=== PATIENT | male | born 1970 | race Caucasian/White ===

== ENCOUNTER 2020-01-01 18:44 | Observation (INO) | payer MEDICAID ==
[~2020-01-01] VITALS: Ht 190.5 cm; Wt 94.5 kg
[2020-01-01] MEDS ORDERED: ADDERALL 30 MG30 MG PO (18:53)
[2020-01-01] MEDS ORDERED: LEXAPRO20 MG PO (18:55)
[2020-01-01] MEDS ORDERED: OMEPRAZOLE20 M1 PO (18:55)
[2020-01-01] MEDS ORDERED: CYCLOBENZAPRINE10 MG PO (18:55)
[2020-01-01] MEDS ORDERED: SUPER B COMPLE1 EAC1 PO (18:55)
[2020-01-01] MEDS ORDERED: BUPROPION HCL150 M1 PO (18:57)
[2020-01-01] MEDS ORDERED: SINGULAIR10 MG PO (18:57)
[2020-01-01] MEDS ORDERED: LISINOPRIL5 MG PO (18:58)
[2020-01-01] MEDS ORDERED: FLUTICASONE PRO16 GM NASAL (18:59)
[2020-01-01 19:37] LABS: BASOPHILS 0.2 % (0-2); EOSINOPHILS 1.3 % (0-7); HEMOGLOBIN 14.3 g/dL (13.5-17.5); IMMATURE GRANULOCYTES 0.3 % (0-5); LYMPHOCYTES 31.4 % (15-50); MCH 31.2 pg (26.0-34.0); MCV 91.5 fL (80.0-100.0); MEAN PLATELET VOLUME 8.8 fL (7.4-10.4); MONOCYTES 10.8 % (2-11); PLATELET COUNT 256 10x3/uL (130-400); RBC 4.59 10x6/uL (4.20-6.10); RDW 12.3 % (11.5-14.5); WBC 6.1 10x3/uL (4.8-10.8)
[2020-01-01 19:49] LABS: APTT 33.4 SECONDS (22.8-39.4); CALC OSMOLALITY 278 mosm/kg (275-300); CALCIUM 9.8 mg/dL (8.5-10.1); CARBON DIOXIDE 28.5 mmol/L (21.0-32.0); CHLORIDE - SERUM 99 mmol/L (98-107); CREATININE - SERUM 1.6 mg/dL (0.6-1.3); GLUCOSE 91 mg/dL (74-106); INR 1.03 (0.85-1.17); POTASSIUM - SERUM 4.1 mmol/L (3.5-5.1); PROTIME 13.4 SECONDS (11.6-15.0); SODIUM 138 mmol/L (136-145); UREA NITROGEN 21 mg/dL (7-18); eGFR NON AFRICAN AMERICAN 49 mL/min (90-120)
[2020-01-01 20:07] LABS: ALBUMIN 4.3 g/dL (3.4-5.0); ALKALINE PHOSPHATASE 71 U/L (30-120); ALT (SGPT) 33 U/L (10-68); BILIRUBIN - TOTAL 0.67 mg/dL (0.2-1.3); CKMB 4.2 U/L (0.0-3.6); CREATINE KINASE 371 UL (21-232); MAGNESIUM - SERUM 1.8 mg/dL (1.8-2.4); PROTEIN - SERUM 7.7 g/dL (6.4-8.2); TROPONIN-I < 0.017 ng/mL (0.000-0.060)
[2020-01-01 21:48] LABS: CKMB 4.1 U/L (0.0-3.6); CREATINE KINASE 348 UL (21-232); TROPONIN-I < 0.017 ng/mL (0.000-0.060)
--- NOTE | 2020-01-01 22:29 | NUR ---
PT ARRIVED TO ROOM
--- NOTE | 2020-01-01 23:30 | NUR ---
ADMISSION HISTORY AND ASSESSMENT COMPLETED. PT RESTING IN BED. VERY FIDGETY AND RESTLESS. HOME MEDS REVIEWED/UPDATED. PT C/O CHEST PAIN/DISCOMFORT. MEDICATED WITH MORPHINE/ZOFRAN SIVP. FIANCE AT BEDSIDE. PLAN OF CARE INITIATED. INSTRUCTED ON NPO AFTER MIDNIGHT.
[2020-01-02 00:26] VITALS: BP 132/64; Ht 190.5 cm; Wt 94.5 kg
--- NOTE | 2020-01-02 03:30 | NUR ---
AWAKE, C/O RETURNING CHEST PAIN/DISCOMFORT. MEDICATED WITH ZOFRAN/MORPHINE SIVP.
[2020-01-02 04:45] VITALS: BP 102/59
[2020-01-02 05:08] LABS: BASOPHILS 0.4 % (0-2); EOSINOPHILS 5.2 % (0-7); HEMATOCRIT 37.8 % (42.0-54.0); HEMOGLOBIN 12.7 g/dL (13.5-17.5); LYMPHOCYTES 49.7 % (15-50); MCH 31.2 pg (26.0-34.0); MCHC 33.6 g/dL (31.0-37.0); MCV 92.9 fL (80.0-100.0); MEAN PLATELET VOLUME 8.8 fL (7.4-10.4); NEUTROPHILS 31.7 % (40-80); PLATELET COUNT 220 10x3/uL (130-400); RBC 4.07 10x6/uL (4.20-6.10); RDW 12.6 % (11.5-14.5); WBC 4.6 10x3/uL (4.8-10.8)
[2020-01-02 05:31] LABS: ALBUMIN 3.3 g/dL (3.4-5.0); ALKALINE PHOSPHATASE 64 U/L (30-120); ALT (SGPT) 26 U/L (10-68); BILIRUBIN - TOTAL 0.27 mg/dL (0.2-1.3); CALCIUM 8.2 mg/dL (8.5-10.1); CARBON DIOXIDE 29.7 mmol/L (21.0-32.0); CHLORIDE - SERUM 105 mmol/L (98-107); CKMB 3.1 U/L (0.0-3.6); CREATINE KINASE 318 UL (21-232); PROTEIN - SERUM 6.4 g/dL (6.4-8.2); SODIUM 141 mmol/L (136-145); UREA NITROGEN 21 mg/dL (7-18)
[2020-01-02 05:39] LABS: CALC OSMOLALITY 286 mosm/kg (275-300); CREATININE - SERUM 1.1 mg/dL (0.6-1.3); GLUCOSE 161 mg/dL (74-106); TROPONIN-I < 0.017 ng/mL (0.000-0.060); eGFR NON AFRICAN AMERICAN 75 mL/min (90-120)
--- NOTE | 2020-01-02 07:41 | NUR ---
4MG OF MORPHINE GIVEN FOR PAIN LEVEL OF 3/10. AND 4MG OF ZOFRAN PER PT REQUEST. PT A/O X4, RESP EVEN AND NONLABORED ON 2L. PT DENIES ANY OTHER NEEDS AT THIS TIME. CALL LIGHT IN REACH, NAD NOTED, WILL CONTINUE TO MONITOR.
[2020-01-02 08:00] VITALS: BP 108/60
[2020-01-02 12:00] VITALS: BP 113/66
--- NOTE | 2020-01-02 13:34 | NUR ---
PT RESTING COMFORTABLY IN BED, DENIES ANY NEEDS AT THIS TIME. SPOUSE AT BEDSIDE, CALL LIGHT IN REACH, WILL CONTINUE TO MONITOR.
[2020-01-02 13:41] LABS: CKMB 3.2 U/L (0.0-3.6); CREATINE KINASE 295 UL (21-232)
[2020-01-02 13:43] LABS: TROPONIN-I < 0.017 ng/mL (0.000-0.060)
--- NOTE | 2020-01-02 15:54 | NUR ---
PT ASKING IF HE IS GOING TO BE DISCHARGE TODAY. PAGED DR. 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
[2020-01-02 16:00] VITALS: BP 121/62
--- NOTE | 2020-01-02 16:29 | NUR ---
PER DR. BONNIE OLSEN FOR PT TO BE DISCHARGE, NORMAL STRESS TEST.
--- NOTE | 2020-01-02 16:39 | NUR ---
NOTIFIED GEENA SARMIENTO OF NORMAL STRESS TEST AND PER CARDIOLOGY PT CAN BE D/C.
--- NOTE | 2020-01-02 17:32 | NUR ---
PT WHEELED OUT TO ER ENTRANCE WITH ALL BELONGIGNS, NAD NOTED.
== END 2020-01-02 17:32 | disposition home or self-care (01) ==
LOC: D.ER 18:44 → OBSVTIME 21:22 → D.M2 21:22
PROVIDERS: Family Medicine; ADMIT Emergency Medicine; ATTEND Emergency Medicine
DX: R07.9 Chest pain, unspecified (principal); I10 Essential (primary) hypertension; E78.5 Hyperlipidemia, unspecified; Z72.0 Tobacco use

== ENCOUNTER 2020-08-01 17:05 | Observation (INO) | payer MEDICAID ==
[~2020-08-01] VITALS: Ht 190.5 cm; Wt 95.1 kg
[~2020-08-01 17:05] MED LIST: ADDERALL 30 MG30 MG PO; BUPROPION HCL150 M1 PO; CYCLOBENZAPRINE10 MG PO; FLUTICASONE PRO16 GM NASAL; LEXAPRO20 MG PO; LISINOPRIL5 MG PO; OMEPRAZOLE20 M1 PO; SINGULAIR10 MG PO; SUPER B COMPLE1 EAC1 PO
[2020-08-01 17:50] LABS: BASOPHILS 0.2 % (0-2); EOSINOPHILS 0.6 % (0-7); HEMATOCRIT 43.3 % (42.0-54.0); HEMOGLOBIN 14.9 g/dL (13.5-17.5); IMMATURE GRANULOCYTES 0.2 % (0-5); LYMPHOCYTE ABS# 1.88 10x3/uL (1.32-3.57); LYMPHOCYTES 19.6 % (15-50); MCH 31.1 pg (26.0-34.0); MCHC 34.4 g/dL (31.0-37.0); MCV 90.4 fL (80.0-100.0); MEAN PLATELET VOLUME 9.1 fL (7.4-10.4); MONOCYTES 9.2 % (2-11); NEUTROPHIL ABS# 6.72 10x3/uL (1.78-5.38); NEUTROPHILS 70.2 % (40-80); RBC 4.79 10x6/uL (4.20-6.10); RDW 12.2 % (11.5-14.5); WBC 9.6 10x3/uL (4.8-10.8)
[2020-08-01 17:54] LABS: PLATELET COUNT 299 10x3/uL (130-400)
[2020-08-01 18:02] LABS: CALC OSMOLALITY 278 mosm/kg (275-300); CALCIUM 10.3 mg/dL (8.5-10.1); CARBON DIOXIDE 21.2 mmol/L (21.0-32.0); CHLORIDE - SERUM 100 mmol/L (98-107); CREATININE - SERUM 2.1 mg/dL (0.6-1.3); GLUCOSE 121 mg/dL (74-106); POTASSIUM - SERUM 4.6 mmol/L (3.5-5.1); SODIUM 137 mmol/L (136-145); UREA NITROGEN 25 mg/dL (7-18); eGFR NON AFRICAN AMERICAN 35 mL/min (90-120)
[2020-08-01 18:04] LABS: APTT 27.8 SECONDS (22.8-39.4); INR 1.04 (0.85-1.17); PROTIME 12.6 SECONDS (11.6-15.0)
[2020-08-01 18:05] VITALS: BP 100/78
[2020-08-01 18:05] LABS: ALBUMIN 4.4 g/dL (3.4-5.0); D-DIMER-QUANTITATIVE < 0.27 ug/mLFEU (0.20-0.54); MAGNESIUM - SERUM 1.9 mg/dL (1.8-2.4)
[2020-08-01 18:27] LABS: ALKALINE PHOSPHATASE 83 U/L (30-120); ALT (SGPT) 37 U/L (10-68); BILIRUBIN - TOTAL 0.75 mg/dL (0.2-1.3); CKMB 1.4 U/L (0.0-3.6); CREATINE KINASE 314 UL (21-232); PROTEIN - SERUM 7.9 g/dL (6.4-8.2); TROPONIN-I < 0.017 ng/mL (0.000-0.060)
[2020-08-01 19:00] VITALS: BP 101/58
--- NOTE | 2020-08-01 19:15 | NUR ---
REPORT TO YOUNG KUMAR
[2020-08-01 20:00] VITALS: BP 106/62
[2020-08-01 21:00] VITALS: BP 144/88
[2020-08-01 22:33] VITALS: Ht 190.5 cm; Wt 95.1 kg
--- NOTE | 2020-08-01 22:43 | NUR ---
RECIEVED REPORT FROM ER. ARRIVED TO FLOOR ON STRETCHER WITH SIGNIFICANT OTHER AT SIDE. ASSESSMENT COMPLETER.
[2020-08-01 23:56] VITALS: BP 121/67
[2020-08-02 00:48] LABS: CKMB 1.3 U/L (0.0-3.6); CREATINE KINASE 245 UL (21-232); TROPONIN-I < 0.017 ng/mL (0.000-0.060)
[2020-08-02 04:00] VITALS: BP 126/74
[2020-08-02 06:24] LABS: BASOPHILS 0.2 % (0-2); EOSINOPHILS 2.4 % (0-7); HEMOGLOBIN 12.5 g/dL (13.5-17.5); LYMPHOCYTES 40.9 % (15-50); MCH 31.4 pg (26.0-34.0); MCHC 33.8 g/dL (31.0-37.0); MEAN PLATELET VOLUME 9.1 fL (7.4-10.4); MONOCYTES 11.2 % (2-11); NEUTROPHIL ABS# 2.66 10x3/uL (1.78-5.38); NEUTROPHILS 45.3 % (40-80); PLATELET COUNT 244 10x3/uL (130-400); RBC 3.98 10x6/uL (4.20-6.10); RDW 12.8 % (11.5-14.5)
[2020-08-02 06:34] LABS: WBC 5.9 10x3/uL (4.8-10.8)
[2020-08-02 07:22] LABS: ALBUMIN 3.3 g/dL (3.4-5.0); ALKALINE PHOSPHATASE 68 U/L (30-120); BILIRUBIN - TOTAL 0.27 mg/dL (0.2-1.3); CALCIUM 8.8 mg/dL (8.5-10.1); CHLORIDE - SERUM 107 mmol/L (98-107); CREATINE KINASE 217 UL (21-232); GLUCOSE 121 mg/dL (74-106); PROTEIN - SERUM 6.2 g/dL (6.4-8.2); SODIUM 140 mmol/L (136-145)
[2020-08-02 07:37] LABS: ALT (SGPT) 25 U/L (10-68); CALC OSMOLALITY 287 mosm/kg (275-300); CARBON DIOXIDE 26.9 mmol/L (21.0-32.0); CREATININE - SERUM 1.2 mg/dL (0.6-1.3); POTASSIUM - SERUM 3.9 mmol/L (3.5-5.1); TROPONIN-I < 0.017 ng/mL (0.000-0.060); UREA NITROGEN 35 mg/dL (7-18); eGFR NON AFRICAN AMERICAN 67 mL/min (90-120)
--- NOTE | 2020-08-02 07:40 | NUR ---
Lying in bed, awake/alert/oriented, T/R self ad lorne, cont of B/B with BRPs per self ad lorne, denies pain/other discomfort at this time, call light/phone within reach, currently NPO for procedure/tests, no s/s of acute distress observed.
[2020-08-02 08:12] VITALS: BP 108/56
[2020-08-02 12:16] VITALS: BP 110/58
[2020-08-02 13:08] LABS: CKMB 0.9 U/L (0.0-3.6); CREATINE KINASE 215 UL (21-232); TROPONIN-I < 0.017 ng/mL (0.000-0.060)
[2020-08-02 16:06] VITALS: BP 118/64
[2020-08-02 17:27] LABS: UDS - AMPHET POSITIVE QUAL (NEGATIVE); UDS - BARB NEGATIVE QUAL (NEGATIVE); UDS - BENZO NEGATIVE QUAL (NEGATIVE); UDS - COCAINE NEGATIVE QUAL (NEGATIVE); UDS - OPIATE NEGATIVE QUAL (NEGATIVE); UDS - PCP NEGATIVE QUAL (NEGATIVE); UDS - THC NEGATIVE QUAL (NEGATIVE)
[2020-08-02 17:34] LABS: BILIRUBIN NEGATIVE (NEGATIVE); KETONE NEGATIVE (NEGATIVE); NITRITE NEGATIVE (NEGATIVE); UROBILINOGEN NORMAL mg/dL (< 2)
--- NOTE | 2020-08-02 17:35 | NUR ---
PATIENT IS WANTING TO GO HOME WITHOUT WAITING ON A DOCTOR ORDER FOR IT. I EXPLAINED ABOUT THE AMA AND INSURANCE. I GOT HIM TO STAY WHILE I CALL THE DOCTOR FOR OFFICAL DISCHARGE. I CALLED THE OFFICE TO HAVE DR TARIQ CALL ME HERNANDEZ TO HELP PREVENT THE AMA. AWAITING CALL BACK.
--- NOTE | 2020-08-02 18:10 | NUR ---
Provided written/verbal discharge instructions/education to which pt voiced understanding, discontinued IV access.
--- NOTE | 2020-08-02 18:22 | NUR ---
Discharged home to self care in stable condition via ambulation accompanied by hospital staff and spouse, no s/s of acute distress observed.
--- NOTE | 2020-08-03 14:50 | MORECARE ---
CASE MANAGEMENT DISCHARGE SUMMARY PATIENT: RHINA BERNARD UNIT: [id number] ADM DATE: 08/02/20 AGE: 50 : 66 SEX: M ROOM/BED: D.[facility] AUTHOR: NAPOLEON,DOC PHYSICIAN: REFERRING PHYSICIAN: MAX ROSS MD DATE OF SERVICE: 08/03/20 Case Management Discharge Planning Summary DCP REVIEW SUMMARY ANTICIPATED D/C DATE: EXPECTED LOS : CASE STATUS: DCP Not started INITIAL REVIEW: 08/01/2020 INITIAL REVIEWER: Slime Aguilar FINAL DISCHARGE DISPOSITION: 01 : Home or Self Care (Routine Discharge) FINAL REVIEWER: Slime Aguilar FINAL REVIEW DATE: 08/03/2020 DCP [employer] Questions & Answers QUESTION: ANSWER : PATIENT: RHINA BERNARD ENCOUNTER: [id number] MEDICAL RECORD#: [id number] ADMISSION DATE: 08/02/2020 DISCHARGE DATE: 08/02/2020 ATTENDING MD: : AGE: 50 MARITAL STATUS: M DC PLAN ID: [id number] FACILITY: [facility] PRINTED ON: 08/03/20 14:50 CT All edits/amendments must be made on the electronic document DICTATION DATE: 08/03/20 145 PROCUREMENT INTERNSHIP: PAUL 08/03/20 145 RPT#: [id number] DC DATE:08/02/20 STATUS: DIS IN [facility] [address] [place] [address] END OF REPORT
== END 2020-08-02 18:22 | disposition home or self-care (01) ==
LOC: D.ER 17:05 → D.M2 18:53 → OBSVTIME 18:53 → D.M2 19:41 → OBSVTIME 19:41 → D.M2 08-02 15:55
PROVIDERS: Family Medicine; ADMIT Emergency Medicine; ATTEND Emergency Medicine
DX: I20.9 Angina pectoris, unspecified (principal); R07.9 Chest pain, unspecified; N17.9 Acute kidney failure, unspecified; I47.1 Supraventricular tachycardia; R10.9 Unspecified abdominal pain; I10 Essential (primary) hypertension; F41.9 Anxiety disorder, unspecified; Z72.0 Tobacco use